=== PATIENT | female | born 1955 | race Hispanic/Latino ===

== ENCOUNTER 2016-05-04 20:18 | Emergency (ER) | payer MEDICAID, SELFPAY ==
[2016-05-04] MEDS ORDERED: Famotidine In NaCl 20 mg/50 ml Premix Bag ONE ×4 (21:01→21:07)
[2016-05-04] MEDS ORDERED: Ondansetron HCl/PF 4 MG/2 ML Vial ONE ×2 (21:01→21:37)
[2016-05-04] MEDS ORDERED: Famotidine 20 MG TAB ONE (21:05)
[2016-05-04 21:18] LABS: ALT (SGPT) 21 U/L (0-55); AST (SGOT) 27 U/L (5-34); Alkaline Phosphatase 107 U/L (40-150); Anion Gap 15 mmol/L (10-20); BUN (Urea Nitrogen) 24 mg/dL (9.8-20.1); Bilirubin, Total 0.2 mg/dL (0.2-1.2); Calc. Creatinine Clearance 0 mL/min (70-130); Calcium 9.8 mg/dL (7.8-10.44); Carbon Dioxide 24 mmol/L (22-29); Chloride 106 mmol/L (98-107); Estimated GFR-MDRD 74; Globulin 3.6 g/dL (2.4-3.5); Lipase 15 U/L (8-78)
[2016-05-04 21:25] LABS: Hematocrit 39.4 % (36.0-47.0); Mean Platelet Volume 7.1 fL (7.4-10.4); Neutrophil 80 % (42-75); Reactive Lymphocytes 1 % (0-10); Red Blood Cell (RBC) Count 4.65 mill/uL (4.20-5.40); White Blood Cell (WBC) Count 20.7 thou/uL (4.8-10.8)
== END 2016-05-04 23:15 | disposition home or self-care (01) ==
LOC: BURERS 20:18
DX: A08.4 Viral intestinal infection, unspecified (principal); I10 Essential (primary) hypertension; E11.9 Type 2 diabetes mellitus without complications; Z79.84 Long term (current) use of oral hypoglycemic drugs; Z79.82 Long term (current) use of aspirin; Z79.899 Other long term (current) drug therapy
CPT/HCPCS: 80053; 83690; 85025; 96361; 96374; 96375; 96376; J2405

== ENCOUNTER 2017-08-07 10:01 | Outpatient (CLI) | payer MEDICAID, MEDICARE ==
[2017-08-07 17:36] LABS: Bilirubin Negative (Negative); Blood, Urine Negative (Negative); Clarity CLOUDY (Clear); Glucose, Urine (Dipstick) >=1000 mg/dL (Negative); Leukocyte Small (Negative); Nitrite Negative (Negative); Protein, Urine (Dipstick) Negative (Neg-Trace); Specific Gravity, Urine 1.033 (1.002-1.036); Urobilinogen 0.2 mg/dL (0.2-1.0)
--- NOTE | 2017-08-07 17:43 | ULT ---
BILATERAL RENAL ULTRASOUND 08/07/17 Ultrasonography of the urinary tract was done in this patient with chronic kidney disease. Both kidne ys are normal in appearance with no cortical thinning, increased in echogenicity or hydronephrosis. T he right kidney measures 9.4 x 4.6 x 4.5 cm and the left measures 10.9 x 4.9 x 5.2 cm. The urinary bladder is empty and decompressed, so nothing further can be said about it. IMPRESSION: Unremarkable renal ultrasound. POS: HOME
[2017-08-07 17:55] LABS: Hemoglobin 13.3 g/dL (12.0-16.0)
[2017-08-07 18:00] LABS: Anion Gap 11 mmol/L (10-20); BUN (Urea Nitrogen) 11 mg/dL (9.8-20.1); Calc. Creatinine Clearance 0 mL/min (70-130); Calcium 9.5 mg/dL (7.8-10.44); Carbon Dioxide 25 mmol/L (22-29); Chloride 105 mmol/L (98-107); Estimated GFR-MDRD 83; Glucose 201 mg/dL (70-105); Phosphorus 3.2 mg/dL (2.3-4.7); Potassium 4.2 mmol/L (3.5-5.1); Sodium 137 mmol/L (136-145)
[2017-08-07 18:02] LABS: Creatinine, Urine 126.75 mg/dL (47-110)
== END 2017-08-07 10:02 | disposition home or self-care (01) ==
LOC: BURULT 10:01
PROVIDERS: ATTEND Internal Medicine Nephrology
DX: I12.9 Hypertensive chronic kidney disease with stage 1 through stage 4 chronic kidney disease, or unspecified chronic kidney disease (principal); N18.2 Chronic kidney disease, stage 2 (mild); E55.9 Vitamin D deficiency, unspecified; Q61.9 Cystic kidney disease, unspecified; R30.9 Painful micturition, unspecified
CPT/HCPCS: 36415; 76770; 80048; 81003; 82306; 82570; 83970; 84100; 84156; 85014; 85018

== ENCOUNTER 2017-08-14 20:09 | Emergency (ER) | payer MEDICARE ==
[~2017-08-14 20:09] MED LIST: Iopamidol 370 76% 100 ML VIAL ONE
[2017-08-14 21:15] LABS: #Basophils 0.1 thou/uL (0.0-0.2); #Eosinphils 0.2 thou/uL (0.0-0.7); #Monocytes 0.8 thou/uL (0.11-0.59); #Neutrophils 11.8 thou/uL (1.40-6.50); %Basophils 0.7 % (0.0-1.0); %Eosinophils 1.4 % (0.0-10.0); %Lymphocytes 18.6 % (21.0-51.0); %Monocytes 5.3 % (0.0-10.0); Mean Corpuscular HGB CONC 34.3 g/dL (32.0-36.0); Mean Corpuscular Volume 78.7 fl (81.0-99.0); Mean Platelet Volume 6.5 fL (7.4-10.4); Platelet Count 352 thou/uL (130-400); RBC Distribution Width 11.6 % (11.5-14.5); Red Blood Cell (RBC) Count 5.19 mill/uL (4.20-5.40); White Blood Cell (WBC) Count 15.9 thou/uL (4.8-10.8)
[2017-08-14] MEDS ORDERED: Ondansetron HCl/PF 4 MG/2 ML Vial ONE (21:17)
[2017-08-14 21:29] LABS: ALT (SGPT) 17 U/L (8-55); AST (SGOT) 17 U/L (5-34); Albumin 4.4 g/dL (3.5-5.0); Alkaline Phosphatase 124 U/L (40-150); Anion Gap 15 mmol/L (10-20); BUN (Urea Nitrogen) 26 mg/dL (9.8-20.1); Bilirubin, Total 0.3 mg/dL (0.2-1.2); Calc. Creatinine Clearance 0 mL/min (70-130); Calcium 9.7 mg/dL (7.8-10.44); Carbon Dioxide 25 mmol/L (22-29); Chloride 103 mmol/L (98-107); Estimated GFR-MDRD 76; Globulin 3.4 g/dL (2.4-3.5); Glucose 86 mg/dL (70-105); Lipase 18 U/L (8-78); Potassium 3.1 mmol/L (3.5-5.1); Protein, Total 7.8 g/dL (6.0-8.3); Sodium 140 mmol/L (136-145)
[2017-08-14 22:27] LABS: Bilirubin Negative (Negative); Blood, Urine Negative (Negative); Clarity Clear (Clear); Glucose, Urine (Dipstick) Negative (Negative); Leukocyte Trace (Negative); Nitrite Negative (Negative); Protein, Urine (Dipstick) Negative (Neg-Trace); Urobilinogen 0.2 mg/dL (0.2-1.0)
[2017-08-14 22:33] LABS: Bacteria/HPF Rare-Few HPF (None Seen); RBC/HPF None Seen HPF (0-3); Squamous Epithelial 0-3 HPF (0-3); WBC/HPF 0-3 HPF (0-3)
--- NOTE | 2017-08-14 23:10 | CT ---
CT ABDOMEN AND PELVIS WITH CONTRAST: 08/14/[address] of the abdomen and pelvis was done after giving IV contrast. Coronal and sagittal reconstru ctions were subsequently done. Comparison is made with a prior CT dated 06/17/15. The lung bases are clear. The liver, spleen, pancreas, and adrenal glands were unremarkable in appear ance. The kidneys show no hydronephrosis. As was mentioned on the prior CT, there is an atypical cyst ic lesion of the left kidney in its middle third. Today, it measures 15 x 12 mm compared to 15 x 9 be fore. It has some increased density in it, so does not fit an absolutely typical cyst. A recent ultra sound failed to show a cyst here. This may need further workup. Elective urological referral to [facility] if further workup is in order would be prudent. The bowel is nondistended but there are some fluid filled loops of small bowel that are nondilated. T his is a nonspecific finding. There are no inflammatory changes around bowel. Postoperative changes a re seen in the base of the cecum. No free air or free fluid was seen. CT of the pelvis showed no pelvic masses, fluid collections, or inflammatory changes. There is some m ild bulging of the L5-S1 disc, slightly right eccentric. IMPRESSION: 1. Some minimal fluid filled loops of small bowel, a nonspecific finding, but sometimes seen in enteritis. 2. 16 x 12 mm atypical cystic lesion of the left kidney. Compares with 15 x 9 mm on the prior CT . See discussion above about the need for further followup. Findings and followup of cystic lesion discussed with Dr. Aranda at 2013 on 08/14/17. POS: HOME
== END 2017-08-14 22:45 | disposition home or self-care (01) ==
LOC: BURERS 20:09
DX: K52.9 Noninfective gastroenteritis and colitis, unspecified (principal); J06.9 Acute upper respiratory infection, unspecified; E11.9 Type 2 diabetes mellitus without complications; I10 Essential (primary) hypertension
CPT/HCPCS: 74177; 80053; 81003; 81015; 83605; 83690; 85025; 96361; 96372; 96374; A4216; J2405

== ENCOUNTER 2018-09-18 16:53 | Outpatient (CLI) | payer MEDICARE ==
--- NOTE | 2018-09-18 21:56 | RAD ---
CHEST TWO VIEWS: 09/18/18 Comparison is made with a 05/30/15 study. The heart is normal in size and the lungs are clear. No infiltrate or effusion was seen. There is no vascular congestion or edema. IMPRESSION: No acute thoracic finding. POS: HOME
== END 2018-09-18 16:54 | disposition home or self-care (01) ==
LOC: BURRAD 16:53
PROVIDERS: ATTEND Physician Assistant
DX: M79.2 Neuralgia and neuritis, unspecified (principal)
CPT/HCPCS: 71046

== ENCOUNTER 2019-02-10 00:52 | Emergency (ER) | payer MEDICARE ==
[2019-02-10] MEDS ORDERED: Acetaminophen 500 MG TAB ONE (01:19)
[2019-02-10 01:40] LABS: #Basophils 0.2 thou/uL (0.0-0.2); #Eosinphils 0.3 thou/uL (0.0-0.7); #Lymphocytes 4.6 thou/uL (1.20-3.40); #Monocytes 0.8 thou/uL (0.11-0.59); #Neutrophils 5.5 thou/uL (1.40-6.50); %Basophils 1.4 % (0.0-1.0); %Eosinophils 2.7 % (0.0-10.0); %Lymphocytes 40.5 % (21.0-51.0); %Monocytes 7.4 % (0.0-10.0); %Neutrophils 48.1 % (42.0-75.0); Hemoglobin 12.7 g/dL (12.0-16.0); Mean Corpuscular HGB CONC 31.1 g/dL (32.0-36.0); Mean Corpuscular Hemoglobin 26.9 pg (27.0-31.0); Mean Corpuscular Volume 86.6 fL (78.0-98.0); Mean Platelet Volume 7.3 fL (7.4-10.4); Platelet Count 334 thou/uL (130-400); RBC Distribution Width 11.6 % (11.5-14.5); Red Blood Cell (RBC) Count 4.73 mill/uL (4.20-5.40); White Blood Cell (WBC) Count 11.4 thou/uL (4.8-10.8)
[2019-02-10 01:52] LABS: ALT (SGPT) 20 U/L (8-55); AST (SGOT) 20 U/L (5-34); Albumin 4.1 g/dL (3.4-4.8); Alkaline Phosphatase 127 U/L (40-110); Anion Gap 14 mmol/L (10-20); BUN (Urea Nitrogen) 13 mg/dL (9.8-20.1); Bilirubin, Total Less than 0.2 mg/dL (0.2-1.2); Calc. Creatinine Clearance 0 mL/min (70-130); Calcium 9.3 mg/dL (7.8-10.44); Carbon Dioxide 24 mmol/L (23-31); Chloride 106 mmol/L (98-107); Estimated GFR-MDRD 84; Globulin 3.2 g/dL (2.4-3.5); Glucose 86 mg/dL (80-115); Potassium 3.8 mmol/L (3.5-5.1); Protein, Total 7.3 g/dL (6.0-8.3); Sodium 140 mmol/L (136-145)
== END 2019-02-10 02:03 | disposition home or self-care (01) ==
LOC: BURERS 00:52
DX: E11.649 Type 2 diabetes mellitus with hypoglycemia without coma (principal); I10 Essential (primary) hypertension; Z79.4 Long term (current) use of insulin
CPT/HCPCS: 36416; 80053; 85025; 99284; 36415-59

== ENCOUNTER 2019-03-17 10:15 | Outpatient (CLI) | payer MEDICARE ==
--- NOTE | 2019-03-17 19:42 | CT ---
CT OF THE BRAIN WITHOUT CONTRAST: 03/17/19 Comparison was made with a 06/24/18 MRI and 10/19/04 CT of the brain. The ventricles are normal in size with no shift. No intracranial bleeding, mass, or sign of stroke wa s found. There was good reyes-white distinction. There has been no adverse change in the interval. The visible paranasal sinuses are clear. The mastoid air cells are under aerated compared to some, but t here is no widespread opacification of them. IMPRESSION: No acute intracranial findings. POS: HOME
== END 2019-03-17 10:16 | disposition home or self-care (01) ==
LOC: BURCT 10:15
PROVIDERS: ATTEND Physician Assistant
DX: G44.52 New daily persistent headache (NDPH) (principal)
CPT/HCPCS: 70450

== ENCOUNTER 2019-08-16 10:25 | Emergency (ER) | payer MEDICARE, OTHER ==
[2019-08-16 11:37] LABS: #Basophils 0.1 thou/uL (0.0-0.2); #Eosinphils 0.2 thou/uL (0.0-0.7); #Lymphocytes 2.5 thou/uL (1.20-3.40); #Monocytes 0.5 thou/uL (0.11-0.59); %Eosinophils 2.4 % (0.0-10.0); %Lymphocytes 30.3 % (21.0-51.0); %Monocytes 6.3 % (0.0-10.0); %Neutrophils 60.1 % (42.0-75.0); Hemoglobin 12.6 g/dL (12.0-16.0); Mean Corpuscular HGB CONC 30.7 g/dL (32.0-36.0); Mean Corpuscular Hemoglobin 27.2 pg (27.0-31.0); Mean Corpuscular Volume 88.8 fL (78.0-98.0); Mean Platelet Volume 8.1 fL (7.4-10.4); Platelet Count 302 thou/uL (130-400); RBC Distribution Width 12.2 % (11.5-14.5); Red Blood Cell (RBC) Count 4.64 mill/uL (4.20-5.40); White Blood Cell (WBC) Count 8.3 thou/uL (4.8-10.8)
[2019-08-16 11:56] LABS: ALT (SGPT) 14 U/L (8-55); AST (SGOT) 20 U/L (5-34); Albumin 4.1 g/dL (3.4-4.8); Alkaline Phosphatase 97 U/L (40-110); Anion Gap 13 mmol/L (10-20); BUN (Urea Nitrogen) 10 mg/dL (9.8-20.1); Bilirubin, Total 0.4 mg/dL (0.2-1.2); Calc. Creatinine Clearance 0 mL/min (70-130); Calcium 9.5 mg/dL (7.8-10.44); Carbon Dioxide 25 mmol/L (23-31); Chloride 106 mmol/L (98-107); Estimated GFR-MDRD Greater than 90; Globulin 3.1 g/dL (2.4-3.5); Glucose 100 mg/dL (80-115); Potassium 3.6 mmol/L (3.5-5.1); Protein, Total 7.2 g/dL (6.0-8.3); Sodium 140 mmol/L (136-145)
--- NOTE | 2019-08-16 13:55 | RAD ---
CHEST TWO VIEWS: Date: 08-16-2019 Comparison: 09-18-18 FINDINGS: The heart is normal in size and the lungs are clear. No acute infiltrate or effusion was seen. There is no vascular congestion or edema. There is no sign of pneumonia. IMPRESSION: No acute finding. POS: HOME
[2019-08-17 14:53] LABS: SARS-CoV-2 MS2 Positive; SARS-CoV-2 N Gene Negative; SARS-CoV-2 S Gene Negative; SARS-CoV-2 orf1ab Negative
== END 2019-08-16 12:37 | disposition home or self-care (01) ==
LOC: BURERS 10:25
DX: J06.9 Acute upper respiratory infection, unspecified (principal); Z20.828 Contact with and (suspected) exposure to other viral communicable diseases; I10 Essential (primary) hypertension; E11.9 Type 2 diabetes mellitus without complications; Z79.84 Long term (current) use of oral hypoglycemic drugs
CPT/HCPCS: 71046; 80053; 83880; 84484; 85025; 93005; 99284; U0003; 87635

== ENCOUNTER 2019-09-10 21:07 | Emergency (ER) | payer MEDICARE ==
[2019-09-10 22:23] LABS: #Basophils 0.1 thou/uL (0.0-0.2); #Eosinphils 0.2 thou/uL (0.0-0.7); #Lymphocytes 3.4 thou/uL (1.20-3.40); #Monocytes 0.7 thou/uL (0.11-0.59); #Neutrophils 6.2 thou/uL (1.40-6.50); %Basophils 1.1 % (0.0-1.0); %Eosinophils 1.8 % (0.0-10.0); %Lymphocytes 32.1 % (21.0-51.0); %Monocytes 6.6 % (0.0-10.0); %Neutrophils 58.3 % (42.0-75.0); Hemoglobin 11.2 g/dL (12.0-16.0); Mean Corpuscular Hemoglobin 27.6 pg (27.0-31.0); Mean Corpuscular Volume 88.9 fL (78.0-98.0); Platelet Count 331 thou/uL (130-400); RBC Distribution Width 12.4 % (11.5-14.5); Red Blood Cell (RBC) Count 4.08 mill/uL (4.20-5.40); White Blood Cell (WBC) Count 10.6 thou/uL (4.8-10.8)
[2019-09-10 22:25] LABS: Prothrombin Time 13.5 sec (12.0-14.7)
[2019-09-10 22:35] LABS: ALT (SGPT) 14 U/L (8-55); AST (SGOT) 15 U/L (5-34); Albumin 3.8 g/dL (3.4-4.8); Alkaline Phosphatase 90 U/L (40-110); Anion Gap 13 mmol/L (10-20); BUN (Urea Nitrogen) 9 mg/dL (9.8-20.1); Bilirubin, Total Less than 0.2 mg/dL (0.2-1.2); Calc. Creatinine Clearance 0 mL/min (70-130); Calcium 8.7 mg/dL (7.8-10.44); Carbon Dioxide 21 mmol/L (23-31); Chloride 111 mmol/L (98-107); Estimated GFR-MDRD 89; Globulin 2.6 g/dL (2.4-3.5); Glucose 95 mg/dL (80-115); Potassium 3.4 mmol/L (3.5-5.1); Protein, Total 6.4 g/dL (6.0-8.3); Sodium 142 mmol/L (136-145)
[2019-09-10] MEDS ORDERED: Aspirin Chewable 81 MG TAB ONE (23:38)
--- NOTE | 2019-09-11 06:54 | CT ---
CT BRAIN WITHOUT CONTRAST: Date: 09/10/2019 Comparison made with the 03/17/2019 study. The ventricles are normal in size with no shift. No intracranial bleeding, sign of stroke, mass, or e kendra seen. There has been no adverse change since the prior exam. The skull appears normal and the vi sible paranasal sinuses are clear. IMPRESSION: No acute intracranial findings. Preliminary report called to the ER at 2205 hours on 09/10/2019. CODE CR. POS: HOME
== END 2019-09-11 00:10 | disposition short-term general hospital (02) ==
LOC: BURERS 21:07
DX: R07.9 Chest pain, unspecified (principal); R53.1 Weakness; E11.9 Type 2 diabetes mellitus without complications; I10 Essential (primary) hypertension; Z79.84 Long term (current) use of oral hypoglycemic drugs
CPT/HCPCS: 36415; 70450; 80053; 83880; 84484; 85025; 85610; 93005

== ENCOUNTER 2019-11-12 22:36 | Emergency (ER) | payer MEDICARE ==
[2019-11-12] MEDS ORDERED: Nitroglycerin 0.4 MG TAB 1 EACH ONE (23:07)
[2019-11-12] MEDS ORDERED: Aspirin Chewable 81 MG TAB ONE (23:07)
[2019-11-12 23:25] LABS: #Basophils 0.1 thou/uL (0.0-0.2); #Eosinphils 0.2 thou/uL (0.0-0.7); #Monocytes 0.7 thou/uL (0.11-0.59); #Neutrophils 6.4 thou/uL (1.40-6.50); %Lymphocytes 28.7 % (21.0-51.0); %Monocytes 7.1 % (0.0-10.0); %Neutrophils 61.2 % (42.0-75.0); Mean Corpuscular HGB CONC 31.3 g/dL (32.0-36.0); Mean Corpuscular Hemoglobin 27.6 pg (27.0-31.0); Mean Platelet Volume 8.6 fL (7.4-10.4); Platelet Count 264 thou/uL (130-400); Red Blood Cell (RBC) Count 4.35 mill/uL (4.20-5.40); White Blood Cell (WBC) Count 10.5 thou/uL (4.8-10.8)
[2019-11-12 23:38] LABS: ALT (SGPT) 17 U/L (8-55); AST (SGOT) 17 U/L (5-34); Albumin 3.6 g/dL (3.4-4.8); Alkaline Phosphatase 106 U/L (40-110); Anion Gap 15 mmol/L (10-20); BUN (Urea Nitrogen) 13 mg/dL (9.8-20.1); Bilirubin, Total 0.2 mg/dL (0.2-1.2); Calc. Creatinine Clearance 0 mL/min (70-130); Calcium 8.4 mg/dL (7.8-10.44); Carbon Dioxide 24 mmol/L (23-31); Chloride 104 mmol/L (98-107); Estimated GFR-MDRD Greater than 90; Globulin 2.7 g/dL (2.4-3.5); Glucose 260 mg/dL (80-115); Potassium 3.7 mmol/L (3.5-5.1); Protein, Total 6.3 g/dL (6.0-8.3); Sodium 139 mmol/L (136-145)
--- NOTE | 2019-11-13 08:04 | RAD ---
PORTABLE CHEST: DATE: 11/12/2019. FINDINGS: An AP portable film at 2316 is compared with a 08/16/2019 study. The heart is normal in size. There are no major lobar infiltrates or effusions. At most, some of th e lung markings in the left base are a little more prominent than the right, but the patient is also turned slightly which probably explains this. IMPRESSION: Little change since the prior study of 08/16/2019. See above. POS: HOME
== END 2019-11-13 01:05 | disposition short-term general hospital (02) ==
LOC: BURERS 22:36
DX: I10 Essential (primary) hypertension (principal); R07.9 Chest pain, unspecified; E11.9 Type 2 diabetes mellitus without complications; Z79.84 Long term (current) use of oral hypoglycemic drugs
CPT/HCPCS: 71045; 80053; 83880; 84484; 85025; 93005

== ENCOUNTER 2020-04-13 00:38 | Emergency (ER) | payer MEDICARE, SELFPAY ==
[2020-04-13] MEDS ORDERED: Nitroglycerin 0.4 MG TAB 1 EACH ONE ×2 (01:29→01:46)
[2020-04-13] MEDS ORDERED: Aspirin Chewable 81 MG TAB ONE (01:29)
[2020-04-13 01:32] LABS: #Basophils 0.1 thou/uL (0.0-0.2); #Eosinphils 0.2 thou/uL (0.0-0.7); #Lymphocytes 2.7 thou/uL (1.20-3.40); #Monocytes 0.7 thou/uL (0.11-0.59); #Neutrophils 5.4 thou/uL (1.40-6.50); %Basophils 0.9 % (0.0-1.0); %Eosinophils 2.1 % (0.0-10.0); %Lymphocytes 29.9 % (21.0-51.0); %Monocytes 7.8 % (0.0-10.0); %Neutrophils 59.3 % (42.0-75.0); Hemoglobin 14.1 g/dL (12.0-16.0); Mean Corpuscular HGB CONC 32.4 g/dL (32.0-36.0); Mean Corpuscular Hemoglobin 27.7 pg (27.0-31.0); Mean Corpuscular Volume 85.3 fL (78.0-98.0); Platelet Count 309 thou/uL (130-400); RBC Distribution Width 11.2 % (11.5-14.5); Red Blood Cell (RBC) Count 5.08 mill/uL (4.20-5.40); White Blood Cell (WBC) Count 9.2 thou/uL (4.8-10.8)
[2020-04-13 01:40] LABS: ALT (SGPT) 27 U/L (8-55); AST (SGOT) 24 U/L (5-34); Albumin 4.2 g/dL (3.4-4.8); Alkaline Phosphatase 145 U/L (40-110); Anion Gap 14 mmol/L (10-20); BUN (Urea Nitrogen) 11 mg/dL (9.8-20.1); Bilirubin, Total 0.4 mg/dL (0.2-1.2); Calc. Creatinine Clearance 0 mL/min (70-130); Carbon Dioxide 24 mmol/L (23-31); Chloride 103 mmol/L (98-107); Globulin 3.3 g/dL (2.4-3.5); Glucose 236 mg/dL (80-115); Lipase 17 U/L (8-78); Potassium 3.4 mmol/L (3.5-5.1); Protein, Total 7.5 g/dL (5.8-8.1); Sodium 138 mmol/L (136-145)
[2020-04-13] MEDS ORDERED: Ondansetron PF 4 MG/2 ML Vial ONE (02:03)
[2020-04-13] MEDS ORDERED: Fentanyl 100 MCG/2 ML VIAL ONE (02:03)
[2020-04-13 02:12] LABS: Calcium 9.5 mg/dL (7.8-10.44)
--- NOTE | 2020-04-13 08:45 | RAD ---
PORTABLE CHEST: DATE: 04/13/2020. FINDINGS: An AP portable film at 0118 is compared with a 11/12/19 study. There has been no adverse interval change. The heart is normal in size and the lungs are clear. No infiltrate or effusion was seen. There is no vascular congestion or edema. IMPRESSION: No acute thoracic findings. POS: HOME
== END 2020-04-13 02:40 | disposition short-term general hospital (02) ==
LOC: BURERS 00:38
DX: I20.0 Unstable angina (principal); E78.5 Hyperlipidemia, unspecified; E78.00 Pure hypercholesterolemia, unspecified; E11.9 Type 2 diabetes mellitus without complications; I10 Essential (primary) hypertension; Z79.84 Long term (current) use of oral hypoglycemic drugs; Z79.899 Other long term (current) drug therapy
CPT/HCPCS: 71045; 80053; 83690; 84484; 85025; 93005; 94760; 96374; 96375; J2405; J3010

== ENCOUNTER 2020-12-21 16:14 | Emergency (ER) | payer MEDICARE ==
[2020-12-21] MEDS ORDERED: Aspirin Chewable 81 MG TAB ONE (16:46)
[2020-12-21 16:59] LABS: #Basophils 0.1 thou/uL (0.0-0.2); #Eosinphils 0.1 thou/uL (0.0-0.7); #Lymphocytes 2.6 thou/uL (1.20-3.40); #Monocytes 0.8 thou/uL (0.11-0.59); #Neutrophils 7.8 thou/uL (1.40-6.50); %Basophils 1.2 % (0.0-1.0); %Eosinophils 1.2 % (0.0-10.0); %Lymphocytes 22.8 % (21.0-51.0); %Monocytes 6.7 % (0.0-10.0); Hemoglobin 12.9 g/dL (12.0-16.0); Mean Corpuscular HGB CONC 33.4 g/dL (32.0-36.0); Mean Corpuscular Hemoglobin 28.6 pg (27.0-31.0); Mean Corpuscular Volume 85.5 fL (78.0-98.0); Platelet Count 325 thou/uL (130-400); RBC Distribution Width 11.6 % (11.5-14.5); Red Blood Cell (RBC) Count 4.51 mill/uL (4.20-5.40); White Blood Cell (WBC) Count 11.5 thou/uL (4.8-10.8)
[2020-12-21 17:08] LABS: ALT (SGPT) 18 U/L (8-55); AST (SGOT) 17 U/L (5-34); Albumin 3.9 g/dL (3.4-4.8); Alkaline Phosphatase 123 U/L (40-110); Anion Gap 18 mmol/L (10-20); BUN (Urea Nitrogen) 14 mg/dL (9.8-20.1); Bilirubin, Total 0.3 mg/dL (0.2-1.2); Calc. Creatinine Clearance 0 mL/min (70-130); Calcium 9.6 mg/dL (7.8-10.44); Carbon Dioxide 21 mmol/L (23-31); Chloride 104 mmol/L (98-107); Glucose 192 mg/dL (80-115); Potassium 3.9 mmol/L (3.5-5.1); Protein, Total 6.9 g/dL (5.8-8.1); Sodium 139 mmol/L (136-145)
== END 2020-12-21 20:00 | disposition short-term general hospital (02) ==
LOC: BURERS 16:14
DX: R07.2 Precordial pain (principal); E11.9 Type 2 diabetes mellitus without complications; E78.5 Hyperlipidemia, unspecified; E78.00 Pure hypercholesterolemia, unspecified; E78.1 Pure hyperglyceridemia; I10 Essential (primary) hypertension; Z87.19 Personal history of other diseases of the digestive system; Z79.82 Long term (current) use of aspirin; Z79.84 Long term (current) use of oral hypoglycemic drugs; Z79.899 Other long term (current) drug therapy
CPT/HCPCS: 71045; 80053; 83880; 84484; 85025; 93005

== ENCOUNTER 2024-02-15 14:18 | Emergency (ER) | payer MEDICARE ==
[2024-02-15] MEDS ORDERED: Lorazepam 0.5 MG TAB ONE (14:52)
[2024-02-15] MEDS ORDERED: Acetaminophen 500 MG TAB ONE (14:52)
[2024-02-15] MEDS ORDERED: Ondansetron PF 4 MG/2 ML Vial ONE (14:52)
[2024-02-15] MEDS ORDERED: Famotidine/PF 20 mg/2ml Vial ONE (14:52)
[2024-02-15 14:59] LABS: #Basophils 0.1 thou/uL (0.0-0.2); #Eosinophils 0.2 thou/uL (0.0-0.7); #Lymphocytes 3.4 thou/uL (1.20-3.40); #Monocytes 0.7 thou/uL (0.11-0.59); %Basophils 0.9 % (0.0-1.0); %Eosinophils 1.4 % (0.0-10.0); %Neutrophils 61.7 % (42.0-75.0); Hematocrit 38.7 % (36.0-47.0); Hemoglobin 12.9 g/dL (12.0-16.0); Mean Corpuscular HGB CONC 33.3 g/dL (32.0-36.0); Mean Corpuscular Hemoglobin 27.4 pg (27.0-31.0); Mean Corpuscular Volume 82.4 fl (78.0-98.0); Mean Platelet Volume 7.3 fL (7.4-10.4); Platelet Count 362 10x3/uL (130-400); RBC Distribution Width 10.8 % (11.5-14.5); White Blood Cell (WBC) Count 11.3 10x3/uL (4.8-10.8)
[2024-02-15 15:14] LABS: Anion Gap 15 mmol/L (10-20); BUN (Urea Nitrogen) 10 mg/dL (9.8-20.1); Calc. Creatinine Clearance 0 mL/min (70-130); Carbon Dioxide 22 mmol/L (23-31); Chloride 106 mmol/L (98-107); Potassium 3.7 mmol/L (3.5-5.1); Sodium 139 mmol/L (136-145)
[2024-02-15 15:15] LABS: ALT (SGPT) 16 U/L (8-55); AST (SGOT) 16 U/L (5-34); Albumin 3.8 g/dL (3.4-4.8); Alkaline Phosphatase 116 U/L (40-110); Bilirubin, Total 0.2 mg/dL (0.2-1.2); Calcium 9.5 mg/dL (7.8-10.44); Estimated GFR 85; Globulin 3.3 g/dL (2.4-3.5); Glucose 132 mg/dL (80-115); Lipase 22 U/L (8-78); Protein, Total 7.1 g/dL (5.8-8.1)
[2024-02-15 15:18] LABS: Troponin I Less than 0.010 ng/mL (< 0.028)
[2024-02-15 15:59] LABS: Bilirubin Negative (Negative); Blood, Urine Negative (Negative); Clarity Clear (Clear); Glucose, Urine (Dipstick) Negative (Negative); Ketone, Urine Negative (Negative); Leukocyte Trace (Negative); Nitrite Negative (Negative); Protein, Urine (Dipstick) Negative (Neg-Trace); Urobilinogen 0.2 mg/dL (Less than 2)
[2024-02-15 16:01] LABS: Specific Gravity, Urine 1.003 (1.002-1.036)
[2024-02-15 16:05] LABS: CAUTI Indications for Culture Dysuria,urgency,freq; RBC/HPF None Seen HPF (0-3); Squamous Epithelial None Seen HPF (0-3); WBC/HPF 0-3 HPF (0-3)
[2024-02-15 16:06] LABS: Bacteria/HPF Rare-Few HPF (None Seen); Urine Culture Reflex No No
== END 2024-02-15 20:08 | disposition short-term general hospital (02) ==
LOC: BURERS 14:18
DX: E11.649 Type 2 diabetes mellitus with hypoglycemia without coma (principal); I10 Essential (primary) hypertension; R07.2 Precordial pain; E78.00 Pure hypercholesterolemia, unspecified; R29.700 NIHSS score 0; Z79.82 Long term (current) use of aspirin; Z79.4 Long term (current) use of insulin; Z79.899 Other long term (current) drug therapy
CPT/HCPCS: 70450; 81001; 82962; 83605; 83690; 83880; 84484; 93005; J2405; J3490; 36416; 80053; 84443; 85025; 96361; 96374; 96375; 36415-59

== ENCOUNTER 2024-11-15 14:29 | Emergency (ER) | payer MEDICARE ==
[2024-11-15 15:25] LABS: Glucose, Urine (Dipstick) Negative (Negative); Leukocyte Moderate (Negative); Protein, Urine (Dipstick) Negative (Neg-Trace); Specific Gravity, Urine Less/Equal 1.005 (1.005-1.030)
[2024-11-15 15:26] LABS: #Basophils 0.1 thou/uL (0.0-0.2); #Eosinophils 0.2 thou/uL (0.0-0.7); #Lymphocytes 2.4 thou/uL (1.20-3.40); #Monocytes 0.7 thou/uL (0.11-0.59); #Neutrophils 7.2 thou/uL (1.40-6.50); %Basophils 0.9 % (0.0-1.0); %Eosinophils 1.7 % (0.0-10.0); %Lymphocytes 22.5 % (21.0-51.0); %Monocytes 6.8 % (0.0-10.0); %Neutrophils 68.2 % (42.0-75.0); Hematocrit 35.0 % (36.0-47.0); Hemoglobin 12.5 g/dL (12.0-16.0); Mean Corpuscular Hemoglobin 28.3 pg (27.0-31.0); Mean Corpuscular Volume 79.3 fl (78.0-98.0); Platelet Count 313 10x3/uL (130-400); Red Blood Cell (RBC) Count 4.41 mill/uL (4.20-5.40); White Blood Cell (WBC) Count 10.6 10x3/uL (4.8-10.8)
[2024-11-15 15:33] LABS: Bacteria/HPF 1+ HPF (None Seen); CAUTI Indications for Culture Dysuria,urgency,freq; RBC/HPF None Seen HPF (0-3)
[2024-11-15 15:35] LABS: Urine Culture Reflex No No
[2024-11-15 15:42] LABS: ALT (SGPT) 13 U/L (Less than 34); AST (SGOT) 19 U/L (11-34); Albumin 3.9 g/dL (3.1-4.5); Alkaline Phosphatase 109 U/L (40-110); Anion Gap 17 mmol/L (10-20); BUN (Urea Nitrogen) 15 mg/dL (9.8-20.1); Bilirubin, Total 0.2 mg/dL (0.3-1.2); Calc. Creatinine Clearance 0 mL/min (70-130); Calcium 8.8 mg/dL (7.8-10.44); Carbon Dioxide 20 mmol/L (23-31); Chloride 105 mmol/L (98-107); Globulin 3.1 g/dL (2.4-3.5); Glucose 141 mg/dL (80-115); Lipase 20 U/L (8-78); Potassium 3.5 mmol/L (3.5-5.1); Sodium 138 mmol/L (136-145)
[2024-11-15 15:43] LABS: Troponin I Less than 0.010 ng/mL (< 0.028)
[2024-11-15] MEDS ORDERED: Sulfameth/Trimethoprim DS 800-160mg TAB ONE (16:50)
== END 2024-11-15 16:54 | disposition home or self-care (01) ==
LOC: BURERS 14:29
DX: E11.649 Type 2 diabetes mellitus with hypoglycemia without coma (principal); K29.00 Acute gastritis without bleeding; N39.0 Urinary tract infection, site not specified; I10 Essential (primary) hypertension
CPT/HCPCS: 71045; 74177; 80053; 81001; 83690; 84484; 85025; 87086; 93005; 94760; 96360; Q9967